=== PATIENT | female | born 1945 | race Caucasian/White ===

== ENCOUNTER 2016-05-09 06:01 | Day surgery (SDC) | payer MEDICARE, BC ==
[2016-05-09] MEDS ORDERED: Lactated Ringers 1,000 ML IV ONE (06:34)
[2016-05-09] MEDS ORDERED: Lactated Ringers 1,000 ML IV SCH (07:00)
[2016-05-09 07:40] LABS: ALBUMIN 3.9 g/dL (3.4-5.0); ANION GAP 16.3 MEQ/L (5-15); BILIRUBIN,TOTAL 0.4 mg/dL (0.2-1.0); Potassium 3.4 mEq/L (3.5-5.1); Total Protein 6.8 gm/dL (6.4-8.2)
[2016-05-09] MEDS ORDERED: Versed 2 MG/2 ML Injection IV ONE (08:00)
[2016-05-09] MEDS ORDERED: DIPRIVAN 200 MG/20 ML IV ONE (08:00)
[2016-05-09] MEDS ORDERED: SUBLIMAZE 100 MCG/2 ML IV ONE (08:00)
[2016-05-09] MEDS ORDERED: Ephedrine Sulfate 50 MG/ML IV ONE (08:00)
[2016-05-09 08:06] VITALS: O2SAT 95
--- NOTE | 2016-05-09 08:32 | OP ---
SURGERY DATE/TIME: 05/09/2016 0656 PREOPERATIVE DIAGNOSIS: Screening colonoscopy. POSTOPERATIVE DIAGNOSIS: Normal colon. PROCEDURE: Colonoscopy. SURGEON: Darío Ann M.D. ANESTHESIA: MAC by Luis Alfredo Marie CRNA. ESTIMATED BLOOD LOSS: None. SPECIMENS: None. DESCRIPTION OF PROCEDURE: After informed written consent was obtained, the patient was taken to the endoscopy suite. She underwent monitored anesthesia and digital rectal exam showed normal sphincter tone and no internal lesions. The scope was inserted in the rectum and sequentially the entire colonic mucosa was traversed. The level of cecum was reached and verified with direct visualization of ileocecal valve. Upon withdrawal careful mucosal inspection revealed no obvious abnormalities. Prior to withdrawal retroflexion was performed and within normal limits. Prep was noted to be good. The scope was removed and the patient was transferred to the recovery room in excellent condition.
[2016-05-09 08:58] VITALS: BP 130/72; PULSE 64
== END 2016-05-09 08:45 | disposition home or self-care (01) ==
LOC: SDC 06:01
PROVIDERS: ATTEND Family Medicine
PROC: 0DJD8ZZ Inspection of Lower Intestinal Tract, Via Natural or Artificial Opening Endoscopic (ICD-10-PCS; principal; 2016-05-09)
DX: Z12.11 Encounter for screening for malignant neoplasm of colon (principal); Z79.899 Other long term (current) drug therapy
CPT/HCPCS: G0121 ×3; 00810; 36415; 80053; 99100; J2250; J2704; J3010

== ENCOUNTER 2022-08-21 06:37 | Day surgery (SDC) | payer MEDICARE, BC ==
[~2022-08-21 06:37] MED LIST: Ak-Dilate OPHTHALMIC*** 1.065 ML, Cyclogyl 1% OPHTH SOL 1.065 ML, GATIFLOXACIN 0.5% OPH... OP ONE; BETADINE 5% OPHTHALMIC 30 ML OP ONE; Lactated Ringers 1,000 ML IV SCH; NON-FORMULARY ITEM OP ONE; TETRACAINE 0.5% STERI-UNIT SOL OP ONE; cefUROXime sodium 0.005 GM in Sodium Chloride Flush 30 ML*** 0.5 ML IJ ONE
[2022-08-21] MEDS ORDERED: Epinephrine Preservative Free 1 MG/ML IJ ONE (06:38)
[2022-08-21] MEDS ORDERED: Lactated Ringers 1,000 ML IV ONE (07:20)
[2022-08-21] MEDS ORDERED: ACETAZOLAMIDE 250 MG TABLET PO ONE (08:30)
[2022-08-21] MEDS ORDERED: Zofran 4 MG/2 ML VIAL IV PRN (08:30)
[2022-08-21] MEDS ORDERED: DIPRIVAN 200 MG/20 ML IV ONE (09:34)
[2022-08-21 10:04] VITALS: PULSE 65; O2SAT 96
[2022-08-21 10:08] VITALS: BP 165/75
== END 2022-08-21 10:15 | disposition home or self-care (01) ==
LOC: SDC 06:37
PROVIDERS: ATTEND Ophthalmology
DX: H25.812 Combined forms of age-related cataract, left eye (principal)
CPT/HCPCS: 99100; C1780; J0171; J2704; A9270-GY

== ENCOUNTER 2022-09-18 08:59 | Day surgery (SDC) | payer MEDICARE, BC ==
[2022-09-18] MEDS ORDERED: Zofran 4 MG/2 ML VIAL IV PRN (09:00)
[2022-09-18] MEDS ORDERED: ACETAZOLAMIDE 250 MG TABLET PO ONE (09:00)
[2022-09-18] MEDS ORDERED: Epinephrine Preservative Free 1 MG/ML IJ ONE (09:00)
[2022-09-18] MEDS ORDERED: Lactated Ringers 1,000 ML IV ONE (09:39)
[2022-09-18] MEDS ORDERED: DIPRIVAN 200 MG/20 ML IV ONE (12:08)
[2022-09-18 12:38] VITALS: O2SAT 97
[2022-09-18 12:46] VITALS: BP 151/58; PULSE 64
== END 2022-09-18 12:52 | disposition home or self-care (01) ==
LOC: SDC 08:59
PROVIDERS: ATTEND Ophthalmology
DX: H25.811 Combined forms of age-related cataract, right eye (principal)
CPT/HCPCS: C1780; J0171; J2704; A9270-GY

== ENCOUNTER 2023-08-17 09:12 | Emergency (ER) | payer MEDICARE, BC ==
--- NOTE | 2023-08-17 09:21 | ERPHSYRPT ---
- History of Present Illness Time Seen by Provider: 08/17/23 09:20 Source: patient, family Exam Limitations: no limitations Physician History: This is a 78-year-old white female patient who has a primary care provider Dr. 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 Patient does not complain of chest pain unless she is coughing. Patient has been exposed to her who is currently being treated for sinus infection. Patient is not short of breath. She has no abdominal pain. She has no fever. She has no nausea vomiting or diarrhea symptoms. Patient does have a history of hyperlipidemia, sleep apnea, gastroesophageal reflux disease, arthritis, fibromyalgia, trigeminal neuralgia and irritable bowel syndrome. The patient has no documented history of coronary artery disease. Timing/Duration: day(s) (3) Activities at Onset: none Severity of Dyspnea-Max: none Severity of Dyspnea-Current: none Possible Cause: no prior episodes Modifying Factors: Improves With: activity Associated Symptoms: intermittent, cough, No chest pain/discomfort Allergies/Adverse Reactions: Penicillins Allergy (Mild, Verified 08/17/23 09:20) Home Medications: Aspirin 81 gm Chew [Baby Aspirin 81 mg Chew] 81 mg PO DAILY 02/02/13 [History] Pregabalin [Lyrica] 150 mg PO CLARIFY 02/02/13 [History] Citalopram Hydrobromide [Citalopram HBr] 20 mg PO DAILY 05/02/16 [History] Melatonin 3 mg PO CLARIFY 05/02/16 [History] Alendronate Sodium [Fosamax] 1 tab PO WEEKLY 08/14/22 [History] Ergocalciferol (Vitamin D2) [Vitamin D2] 1 tab PO WEEKLY 08/14/22 [History] Non-Formulary Drug [Non-Formulary Bulk Item] 100 mg PO DAILY 08/14/22 [History] Chlordiazepoxide/Clidinium Br [Chlordiazepoxide-Clidinium Cap] 1 cap PO DAILY 08/17/23 [History] Pravastatin Sodium 80 mg PO DAILY 08/17/23 [History] Ranolazine [Ranolazine ER] 500 mg PO BID 08/17/23 [History] Hx Tetanus, Diphtheria Vaccination/Date Given: No Travel Risk - International Travel Have you traveled outside of the country in past 3 weeks: No - Emerging Infectious Disease Are you exhibiting symptoms associated with any current EIDs: Yes Symptoms: Cough: New Onset - Review of Systems Constitutional: No Symptoms Eyes: No Symptoms Ears, Nose, & Throat: No Symptoms Respiratory: Cough Cardiac: No Symptoms Abdominal/Gastrointestinal: No Symptoms Genitourinary Symptoms: No Symptoms Musculoskeletal: No Symptoms Skin: No Symptoms Neurological: No Symptoms Psychological: No Symptoms Endocrine: No Symptoms Hematologic/Lymphatic: No Symptoms Immunological/Allergic: No Symptoms All Other Systems: Reviewed and Negative - Past Medical History Pertinent Past Medical History: Yes Neurological History: No Pertinent History ENT History: No Pertinent History Cardiac History: No Pertinent History Respiratory History: Sleep Apnea Endocrine Medical History: No Pertinent History Musculoskeletal History: Arthritis GI Medical History: GERD History: No Pertinent History Psycho-Social History: Depression Female Reproductive Disorders: No Pertinent History Other Medical History: TMJ, fibromyalgia, IBS, Cystitis, trigeminal neuralgia, - Past Surgical History Past Surgical History: Yes Neuro Surgical History: No Pertinent History Cardiac: No Pertinent History Respiratory: No Pertinent History Gastrointestinal: Cholecystectomy Genitourinary: No Pertinent History Musculoskeletal: No Pertinent History Female Surgical History: No Pertinent History Other Surgical History: tonsils, right ankle - Social History Smoking Status: Never smoker Exposure to second hand smoke: No Drug Use: none Patient Lives Alone: No - Nursing Vital Signs Nursing Vital Signs: Initial Vital Signs Temperature 98.2 F 08/17/23 09:13 Pulse Rate 74 08/17/23 09:13 Respiratory Rate 18 08/17/23 09:13 Blood Pressure 144/77 08/17/23 09:13 O2 Sat by Pulse Oximetry 98 08/17/23 09:13 Pain Scale Pain Intensity 0 - Physical Exam General Appearance: no apparent distress, alert Eye Exam: PERRL/EOMI, eyes nml inspection Ears, Nose, Throat Exam: hearing grossly normal, normal ENT inspection, normal pharynx Neck Exam: normal inspection, non-tender, supple, full range of motion Respiratory Exam: normal breath sounds, lungs clear, airway intact, No chest tenderness, No respiratory distress Cardiovascular/Chest Exam: normal heart sounds, regular rate/rhythm Abdominal/Gastrointestinal Exam: soft, normal bowel sounds, No tenderness Rectal Exam: not done Extremity Exam: non-tender, normal range of motion, normal inspection, normal capillary refill, no calf tenderness, no pedal edema, pelvis stable, No pedal edema, No swelling Neurologic Exam: alert, oriented x 3, cooperative, 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 nml as tested, normal mood/affect, nml cerebellar function, nml station & gait, sensation nml Skin Exam: normal color, warm, dry Lymphatic Exam: No adenopathy SpO2 Interpretation: normal O2 Delivery: Room Air - Course Nursing assessment & vital signs reviewed: Yes EKG Interpreted by Me: RATE (75), Sinus Rhythm, NORMAL AXIS, NORMAL INTERVALS, Left Bundle Branch Block, Other (No acute ischemic changes present on today's twelve-lead EKG.) Ordered Tests: Active Orders 24 hr Category Date Time Status EKG-ER Only STAT Care 08/17/23 09:24 Active IV Insertion STAT Care 08/17/23 09:24 Active Pulse Oximetry (ED) STAT Care 08/17/23 09:24 Active CHEST 1 VIEW (PORTABLE) Stat Exams 08/17/23 09:25 Taken BLOOD CULTURE Stat Lab 08/17/23 09:59 Received CBC W DIFF Stat Lab 08/17/23 09:40 Completed CMP Stat Lab 08/17/23 09:40 Completed D-DIMER QUANTITATIVE Stat Lab 08/17/23 09:40 Completed NT PRO BNPII Stat Lab 08/17/23 09:40 Completed TROPONIN Q4H Lab 08/17/23 09:40 Completed TROPONIN Q4H Lab 08/17/23 13:30 Ordered TROPONIN Q4H Lab 08/17/23 17:30 Ordered Lab/Rad Data: Laboratory Result Diagrams 08/17/23 09:40 08/17/23 09:40 Laboratory Results 08/17/23 08/17/23 08/17/23 Range/Units 10:02 09:40 09:40 WBC (3.98-10.04) x10^3/uL RBC (3.93-5.22) x10^6/uL Hgb (11.2-15.7) g/dL Hct (34.1-44.9) % MCV (79.4-94.8) fL MCH (25.6-32.2) pg MCHC (32.2-35.5) g/dL RDW (11.7-14.4) % Plt Count (182-369) x10^3/uL MPV (9.4-12.3) fL Gran % (34.0-71.1) % Immature Gran % (Auto) (0.001-0.429) % Nucleat RBC Rel Count (0.00-0.2) % Eos # (Auto) (0.04-0.36) x10^3/uL Immature Gran # (Auto) (0.001-0.031) x10^3u/L Absolute Lymphs (auto) (1.18-3.74) x10^3/uL Absolute Monos (auto) (0.24-0.86) x10^3/uL Absolute Nucleated RBC (0.00-0.012) x10^3u/L Lymphocytes % (19.3-51.7) % Monocytes % (4.7-12.5) % Eosinophils % (0.7-5.8) % Basophils % (0.1-1.2) % Absolute Granulocytes (1.56-6.13) x10^3/uL Basophils # (0.01-0.08) x10^3/uL D-Dimer (0.0-0.50) mg/L Sodium (135-145) mmol/L Potassium (3.5-5.1) mmol/L Chloride (98-107) mmol/L Carbon Dioxide (22-30) mmol/L Anion Gap (5-15) MEQ/L BUN (7-17) mg/dL Creatinine (0.52-1.04) mg/dL Estimated GFR ML/MIN Glucose (74-106) mg/dL Calcium (8.4-10.2) mg/dL Total Bilirubin (0.2-1.3) mg/dL AST (14-36) U/L ALT (0-35) U/L Alkaline Phosphatase (38-126) U/L Troponin I < 0.012 (0.000-0.033) ng/mL NT-Pro-B Natriuret Pep 606 (<300) pg/mL Serum Total Protein (6.3-8.2) g/dL Albumin (3.5-5.0) g/dL Influenza Type A Ag NEGATIVE (NEGATIVE) Influenza Type B Ag NEGATIVE (NEGATIVE) RSV (PCR) NEGATIVE (NEGATIVE) SARS-CoV-2 (PCR) NEGATIVE (NEGATIVE) 08/17/23 08/17/23 08/17/23 Range/Units 09:40 09:40 09:40 WBC 7.6 (3.98-10.04) x10^3/uL RBC 3.82 L (3.93-5.22) x10^6/uL Hgb 10.9 L (11.2-15.7) g/dL Hct 34.3 (34.1-44.9) % MCV 89.8 (79.4-94.8) fL MCH 28.5 (25.6-32.2) pg MCHC 31.8 L (32.2-35.5) g/dL RDW 13.8 (11.7-14.4) % Plt Count 161 L (182-369) x10^3/uL MPV 9.8 (9.4-12.3) fL Gran % 73.5 H (34.0-71.1) % Immature Gran % (Auto) 0.3 (0.001-0.429) % Nucleat RBC Rel Count 0.0 (0.00-0.2) % Eos # (Auto) 0.14 (0.04-0.36) x10^3/uL Immature Gran # (Auto) 0.02 (0.001-0.031) x10^3u/L Absolute Lymphs (auto) 1.26 (1.18-3.74) x10^3/uL Absolute Monos (auto) 0.57 (0.24-0.86) x10^3/uL Absolute Nucleated RBC 0.00 (0.00-0.012) x10^3u/L Lymphocytes % 16.5 L (19.3-51.7) % Monocytes % 7.5 (4.7-12.5) % Eosinophils % 1.8 (0.7-5.8) % Basophils % 0.4 (0.1-1.2) % Absolute Granulocytes 5.62 (1.56-6.13) x10^3/uL Basophils # 0.03 (0.01-0.08) x10^3/uL D-Dimer 0.47 (0.0-0.50) mg/L Sodium 139 (135-145) mmol/L Potassium 4.3 (3.5-5.1) mmol/L Chloride 106 (98-107) mmol/L Carbon Dioxide 26 (22-30) mmol/L Anion Gap 12.4 (5-15) MEQ/L BUN 15 (7-17) mg/dL Creatinine 0.94 (0.52-1.04) mg/dL Estimated GFR 62.5 ML/MIN Glucose 102 (74-106) mg/dL Calcium 9.2 (8.4-10.2) mg/dL Total Bilirubin 0.30 (0.2-1.3) mg/dL AST 27 (14-36) U/L ALT 18 (0-35) U/L Alkaline Phosphatase 88 (38-126) U/L Troponin I (0.000-0.033) ng/mL NT-Pro-B Natriuret Pep (<300) pg/mL Serum Total Protein 6.1 L (6.3-8.2) g/dL Albumin 3.8 (3.5-5.0) g/dL Influenza Type A Ag (NEGATIVE) Influenza Type B Ag (NEGATIVE) RSV (PCR) (NEGATIVE) SARS-CoV-2 (PCR) (NEGATIVE) - Progress Progress: improved, re-examined Air Movement: good Progress Note: 08/17/23 09:29 My medical decision making and the assignment of moderate complexity to this patient's medical issue today is based on review of the patient's past medical history, review the patient's medication list, review the patient drug allergy list, history present illness and physical findings on examination. The workup in this patient includes placement of intravenous line, CBC, CMP, D-dimer level, BNP, troponin level, twelve-lead EKG, CBC, CMP and chest x-ray. Differential diagnosis includes but is not limited to viral illness, pneumonia, CHF, arrhythmia 08/17/23 11:25 I interpreted the patient's laboratory data results. There is no evidence of any acute, emergent medical issue based on the results of the patient's laboratory data. I interpreted the preliminary report on the patient's chest x-ray. On my assessment of this x-ray it appears that patient has atelectasis versus early infiltrate right base. Blood Culture(s) Obtained: Yes Counseled pt/family regarding: lab results, diagnosis, rad results Medical Desision Making - Independent Historian Additional History obtained from: Spouse - Diagnostic Testing Diagnostic test were ordered, analyzed, and reviewed by me: Yes Radiological Interpretation: Interpreted by me - Risk of complications The pt has a mod risk of morbidity or mortality based on: Need for prescription drug management - Departure Departure Disposition: Home Clinical Impression: Upper respiratory infection Condition: Stable Critical Care Time: No Referrals: CELESTINE TERESA MD [Primary Care Provider] - Follow up/PCP as directed Additional Instructions: Drink plenty of fluids. Take your medications as prescribed. Call your primary care provider on 08/19/2019 4 in the morning to make arranges for follow-up appointment to be seen and evaluated in the subsequent 3 to 5 days. Return to emergency department if symptoms worsen. Prescriptions: Benzonatate 200 mg PO TID PRN #10 cap PRN Reason: Cough Prednisone 10 mg [Deltasone 10 mg] 10 mg PO TID #12 tablet Azithromycin 250 mg [Zithromax 250 MG TABLET] 250 mg PO ZPACK #6 tablet
[2023-08-17 09:32] VITALS: TEMP 98.2
[2023-08-17 10:07] LABS: Absolute Neutrophil Ct (ANC) 5.62 x10^3/uL (1.56-6.13); BASOPHIL % 0.4 % (0.1-1.2); Basophil (Absolute #) 0.03 x10^3/uL (0.01-0.08); Eosinophil % 1.8 % (0.7-5.8); Eosinophil (Absolute #) 0.14 x10^3/uL (0.04-0.36); Hematocrit 34.3 % (34.1-44.9); Hemoglobin 10.9 g/dL (11.2-15.7); IMMATURE GRAN # 0.02 x10^3u/L (0.001-0.031); IMMATURE GRAN % 0.3 % (0.001-0.429); Lymphocyte (Absolute #) 1.26 x10^3/uL (1.18-3.74); Lymphocytes % 16.5 % (19.3-51.7); Mean Cell Volume 89.8 fL (79.4-94.8); Mean Corpuscular Hemoglobin 28.5 pg (25.6-32.2); Mean Corpuscular Hgb Concent. 31.8 g/dL (32.2-35.5); Mean Platelet Volume 9.8 fL (9.4-12.3); Monocyte (Absolute #) 0.57 x10^3/uL (0.24-0.86); Monocytes % 7.5 % (4.7-12.5); Neutrophil % 73.5 % (34.0-71.1); Platelet Count 161 x10^3/uL (182-369); Red Blood Count 3.82 x10^6/uL (3.93-5.22); Red Cell Distribution Width 13.8 % (11.7-14.4); White Blood Count 7.6 x10^3/uL (3.98-10.04)
[2023-08-17 10:22] LABS: ALBUMIN 3.8 g/dL (3.5-5.0); ANION GAP 12.4 MEQ/L (5-15); BILIRUBIN,TOTAL 0.3 mg/dL (0.2-1.3); Calcium 9.2 mg/dL (8.4-10.2); Creatinine 1 0.94 mg/dL (0.52-1.04); EST GLOMERULAR FILTRATION RATE 62.5 ML/MIN; Potassium 4.3 mmol/L (3.5-5.1); Total Protein 6.1 g/dL (6.3-8.2)
[2023-08-17 10:43] LABS: INFLUENZA A NEGATIVE (NEGATIVE); INFLUENZA B NEGATIVE (NEGATIVE); RESPIRATORY SYNCTIAL VIRUS NEGATIVE (NEGATIVE); SARS-CoV-2 Xpert Express NEGATIVE (NEGATIVE)
[2023-08-17 11:10] VITALS: BP 175/73; PULSE 82; RESP 21; O2SAT 96
--- NOTE | 2023-08-17 20:43 | XRAY ---
Indication: Cough. Comparison: None Portable chest inflated and clear. Heart and mediastinal structures within normal limits. Bony thorax intact with osteopenia and minimal degenerative changes. Impression: Nonacute chest.
== END 2023-08-17 12:19 | disposition home or self-care (01) ==
LOC: ED 09:12
DX: J06.9 Acute upper respiratory infection, unspecified (principal); R05.1 Acute cough; E78.5 Hyperlipidemia, unspecified; Z79.52 Long term (current) use of systemic steroids; Z79.899 Other long term (current) drug therapy
CPT/HCPCS: 0241U; 36000; 36415; 71045; 80053; 83880; 84484; 85025; 85379; 87040; 93005; 94760; 99284